=== PATIENT | female | born 2000 | race Caucasian/White ===

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

== ENCOUNTER 2022-07-29 12:53 | Emergency (ER) | payer BC, OTHER, SELFPAY ==
[~2022-07-29] VITALS: Ht 157.5 cm; Wt 95.9 kg
[2022-07-29 12:53] VITALS: BP 142/73; TEMP 99.2; O2SAT 97
== END 2022-07-29 13:17 | disposition left against medical advice (07) ==
LOC: M ED 12:53
DX: R50.9 Fever, unspecified (principal); Z53.21 Procedure and treatment not carried out due to patient leaving prior to being seen by health care provider

== ENCOUNTER → 2023-09-15 | Outpatient (REF) | payer SELFPAY, OTHER, BC | LOC: M LAB REF 16:19 | PROVIDERS: ATTEND Nurse Practitioner Family | DX: R30.0 Dysuria (principal) ==